=== PATIENT | male | born 1970 | race Caucasian/White ===

== ENCOUNTER → 2019-05-20 | Outpatient (CLI) | payer BC ==
--- NOTE | 2019-05-20 23:56 | CONS ---
CONSULTATION DATE OF SERVICE: 05/20/2019 48-year-old gentleman who has been evaluated in the sleep center for possible obstructive sleep apnea-hypopnea syndrome. HISTORY OF PRESENT ILLNESS/SLEEP WAKE EVALUATION: SLEEP SCHEDULE: Patient's usual sleep schedule on working days from 10:30 am until 5:15 am and on weekends from around 11:30 p.m. to 7 a.m. FALLING ASLEEP: Usually no problems with falling asleep, although he has TV in bedroom. DURING SLEEP: He sleeps on the back with his with snoring and witnessed episodes of stopped breathing during the sleep. He may wake up from sleep once with nocturia. DURING THE DAY/SLEEP WAKE EVALUATION: In the morning, he wakes up tired and usually does not take naps. [place] Sleepiness Scale is 7. No history of hypnagogic hallucinations, sleep paralysis or cataplexy. MEDICATIONS: None. PAST SURGICAL HISTORY: Adenoidectomy and tonsillectomy in childhood. SOCIAL HISTORY: Negative for smoking. Alcohol consumption occasional. FAMILY HISTORY: Heart problems, diabetes, sleep apnea, snoring. REVIEW OF SYSTEMS: Sometimes awakenings from sleep, snoring, witnessed episodes of stopped breathing. PHYSICAL EXAM: gentleman without distress, BP 137/86, HR 74, RR 16, height 6 feet 2-1/2 inches, weight 221 pounds. Body mass index 28.0, temperature 98.1, oxygen saturation at room air 98%. HEENT: Oropharynx low position of soft palate. Mallampati 3. Wide neck 16 inches in circumference. Retrognathia 1-2 mm. Neck Supple, no JVD. Thyroid is not palpable. LUNGS Clear to percussion and to auscultation. Good air exchange. No wheezing or rhonchi. HEART S1, S2 regular. No murmurs, gallops, or rubs. ABDOMEN: Soft and nontender. Bowel sounds are present. No organomegaly appreciated. EXTREMITIES No clubbing or cyanosis. KETTLE HAND Awake, alert, and oriented X3. Cranial nerves 2 to 7 intact. There is no fasciculation or atrophy. noted. No focal deficits observed. IMPRESSION: 1. Snoring, witnessed episodes of stopped breathing during the sleep. Low position of soft palate, wide neck, obstructive sleep apnea-hypopnea syndrome. 2. Status post tonsillectomy and adenoidectomy in childhood. PLAN: 1. Home sleep apnea test for evaluation of patient breathing during the sleep. 2. CPAP/BiPAP titration if sleep study confirms obstructive sleep apnea-hypopnea syndrome. 3. Preferable position during sleep on the side. 4. No driving if patient feels any sleepiness. 5. I will see patient for follow up visit to explain results of testing and following plan. Thank you very much for referring this patient for consultation. Sincerely, Hernesto Liao MD, PhD, FAASM Diplomat of [place] [employer] [place] [employer] Drivematic Machine Operator of [facility] MMODL / IJN: [id number] /
== END | disposition home or self-care (01) ==
LOC: SLEEP 16:31
PROVIDERS: ATTEND Internal Medicine
DX: G47.33 Obstructive sleep apnea (adult) (pediatric) (principal); Z90.89 Acquired absence of other organs
CPT/HCPCS: 99211

== ENCOUNTER → 2019-09-09 | Outpatient (CLI) | payer BC ==
--- NOTE | 2019-09-09 18:17 | PN ---
PROGRESS NOTE DATE OF SERVICE: 09/09/2019 This patient is a 49-year-old gentleman who has been followed in Sleep Center and is here for discussion of results of his sleep studies and the following plan. The patient had 2 home sleep apnea tests. The first test showed apnea-hypopnea index 5.3. Second test showed apnea-hypopnea index 8.7 with oxygen desaturation to 85%. The patient had awakenings from sleep up to 2 times with nocturia. Sometimes he feels tiredness and sleepiness during the day. Today his [place] Sleepiness Scale has increased to 11. MEDICATIONS: None. PHYSICAL EXAMINATION: GENERAL: A pleasant patient in no distress. VITAL SIGNS: BP 121/78, HR 56, RR 16, weight 222. Body mass index 28.5. Oxygen saturation at room air 99%. HEENT: PERRARI, EOMI. Evaluation of oropharynx showed tongue protrudes midline. Low position of soft palate. Mallampati III to IV. NECK: Supple. No JVD. Thyroid is not palpable. LUNGS: Clear to percussion and to auscultation. Good air exchange. No wheezing or rhonchi. HEART: S1, S2 regular. No murmurs, gallops or rubs. ABDOMEN: Soft and nontender. Bowel sounds are present. No organomegaly. EXTREMITIES: No clubbing or cyanosis. RESEARCHER: Awake, alert, and oriented X3. Cranial nerves 2 to 7 intact. There is no fasciculation or atrophy. noted. No focal deficits observed. IMPRESSION: 1. Obstructive sleep apnea-hypopnea syndrome. The patient has awakenings from sleep and episodes of sleepiness during the day. 2. Status post tonsillectomy. 3. Status post adenoidectomy. 4. Snoring. PLAN: 1. Patient will be started on treatment with Auto PAP and will use equipment every night for the whole night. 2. Precautions related to driving. No driving if feeling any sleepiness. 3. Watching weight. 4. Follow-up visit in 30 days after patient starts on treatment with CPAP to evaluate clinical response on treatment, compliance with treatment, and to make any necessary adjustments related to mask fitting, pressure and humidification. Thank you very much for allowing me to participate in the management of your patient. Sincerely, Hernesto Liao MD, PhD, FAASM Diplomat of [place] [employer] Specialties [place] [employer] Medicine Celluloid Trimmer of [facility] [place] MMSERVANDO / NANCY: [id number] /
== END | disposition home or self-care (01) ==
LOC: SLEEP 15:55
PROVIDERS: ATTEND Internal Medicine
DX: G47.33 Obstructive sleep apnea (adult) (pediatric) (principal); Z98.890 Other specified postprocedural states

== ENCOUNTER → 2019-11-25 | Outpatient (CLI) | payer BC ==
--- NOTE | 2019-11-25 19:04 | PN ---
PROGRESS NOTE DATE OF SERVICE: 11/25/2019 This patient is a 49-year-old gentleman who has been followed in Sleep Center for treatment of obstructive sleep apnea-hypopnea syndrome. Today is his first visit after he was started on treatment with CPAP. He is able to use CPAP equipment every night without significant problems related to his nasal pillow mask. Sometimes he feels that there is a mild leak from using the CPAP equipment. [place] Sleepiness Scale today is zero. No snoring with the machine. I checked his CPAP unit. Range of the pressure is 5-15, average pressure 8.5. Usage is 29/30 nights for more than 4 hours with average usage 6.5 hours, which is great compliance. Leak 26 L/minute. Apnea-hypopnea index 0.6, which is perfect. MEDICATIONS: None. PHYSICAL EXAMINATION: GENERAL: A pleasant patient in no distress. VITAL SIGNS: BP 127/82, HR 58, RR 16, weight 221, temperature 97.1, oxygen saturation at room air 99%. HEENT: PERRLA, EOMI. Evaluation of oropharynx showed tongue protrudes midline. Low position of soft palate. Mallampati III to IV. NECK: Supple. No JVD. Thyroid is not palpable. LUNGS: Clear to percussion and to auscultation. Good air exchange. No wheezing or rhonchi. HEART: S1, S2 regular. No murmurs, gallops or rubs. ABDOMEN: Soft and nontender. Bowel sounds are present. No organomegaly. EXTREMITIES: No clubbing or cyanosis. STEEL ENGRAVER: Awake, alert, and oriented X3. Cranial nerves 2 to 7 intact. There is no fasciculation or atrophy. noted. No focal deficits observed. IMPRESSION: 1. Obstructive sleep apnea-hypopnea syndrome, under full control with CPAP. Patient demonstrated great compliance with treatment, benefitting from treatment. No sleepiness during the day while on CPAP. 2. Status post tonsillectomy. 3. Status post adenoidectomy. 4. History of snoring; no snoring while using CPAP. PLAN: 1. Patient will continue to use CPAP equipment every night for the whole night. 2. Sleep hygiene with regular time in bed for 7-1/2 to 8 hours. 3. Precautions related to driving. No driving if feeling any sleepiness. 4. I will maintain all necessary prescriptions for CPAP supplies, including Flores FX nasal pillow mask, tube, filters. Patient should try to use chinstrap. 5. Follow-up visit in one year, or earlier if patient has any problems. Thank you very much for allowing me to participate in the management of your patient. Sincerely, Hernesto Liao MD, PhD, FAASM Diplomat of [place] [employer]ties [place] [employer] Medicine Clinical Research Nurse Coordinator of [facility] [place] MMODL / IJN: [id number] /
== END | disposition home or self-care (01) ==
LOC: SLEEP 16:26
PROVIDERS: ATTEND Internal Medicine
DX: G47.33 Obstructive sleep apnea (adult) (pediatric) (principal); Z90.89 Acquired absence of other organs

== ENCOUNTER → 2020-04-12 | Day surgery (SDC) | payer BC ==
[2020-04-10 11:27] VITALS: BMI 25.6
[~2020-04-12] MED LIST: LACTATED RINGERS 1,000 ML IV SCH; LIDOCAINE 1% INJ 10MG/ML (20 ML MDV) ONE; PROPOFOL 10 MG/ML 20 ML VIAL IV ONE
--- NOTE | 2020-04-12 08:06 | P.GSHP ---
History of Present Illness H&P Date: 04/12/20 CHIEF COMPLAINT: Colon screen HISTORY OF PRESENT ILLNESS: The patient is a 49-year-old male who presents for colon screen. Lower endoscopy was offered for further evaluation and management. PAST MEDICAL HISTORY: Please see list. PAST SURGICAL HISTORY: Please see list. MEDICATIONS: Please see list. ALLERGIES: Please see list. SOCIAL HISTORY: No illicit drug use FAMILY HISTORY: No reports of Crohn disease or ulcerative colitis. REVIEW OF ORGAN SYSTEMS: CONSTITUTIONAL: No reports of fevers or chills. PHYSICAL EXAM: VITAL SIGNS: Stable GENERAL: Well-developed pleasant in no acute distress. HEENT: No scleral icterus. Extraocular movements grossly intact. Moist buccal mucosa. NECK: Supple without lymphadenopathy. CHEST: Unlabored respirations. Equal bilateral excursions. CARDIOVASCULAR: Regular rate and rhythm. Distal 2+ pulses. ABDOMEN: Soft, nontender, nondistended. MUSCULOSKELETAL: No clubbing, cyanosis, or edema. ASSESSMENT: 1. Colon screen. PLAN: 1. Recommend proceeding with a lower endoscopy Past Medical History Past Medical History: Cancer, Sleep Apnea/CPAP/BIPAP Additional Past Medical History / Comment(s): uses cpap,skin CA removed with bx History of Any Multi-Drug Resistant Organisms: None Reported Additional Past Surgical History / Comment(s): skin bx Past Anesthesia/Blood Transfusion Reactions: No Reported Reaction Smoking Status: Never smoker - Past Family History Father Family Medical History: CVA/TIA Medications and Allergies Home Medications Medication Instructions Recorded Confirmed Type No Known Home Medications 04/10/20 04/10/20 History Allergies Allergy/AdvReac Type Severity Reaction Status Date / Time Penicillins Allergy Unknown Verified 04/10/20 11:22 Childhood
[2020-04-12 11:06] VITALS: RESP 16; TEMP 98.3
--- NOTE | 2020-04-12 12:24 | P.PCN ---
Date of Procedure: 04/12/20 Description of Procedure: PREOPERATIVE DIAGNOSIS: Colonoscopy screening. POSTOPERATIVE DIAGNOSIS: Colonoscopy screening. Augustine Diverticulosis OPERATION: Colonoscopy to the ileocecal valve and appendiceal orifice. SURGEON: Laurne Mckeon MD. ANESTHESIA: MAC. INDICATIONS: The patient is a 49-year-old male who presents for colonoscopy screening. Benefits and risks were described and informed consent was obtained. DESCRIPTION OF PROCEDURE: The patient had undergone Suprep. He had been brought into the operating room and laid in the left lateral decubitus position. After adequate intravenous sedation, the rectum was examined with 2% lidocaine jelly. Small external hemorrhoids were encountered. The rectal tone was within normal limits. No lesions were palpated in the rectal vault. An Olympus colonoscope was advanced until the ileocecal valve and appendiceal orifice were clearly viewed. The prep was excellent with clear visualization of the mucosal folds. The scope was removed with visualization of each mucosal fold. Augustine diverticulosis was encountered. No colonic polyps were found. No evidence of focal colitis was found. Retroflexion of the scope demonstrated grade 1 internal hemorrhoids without active bleeding or inflammation. The colon was desufflated. The patient had tolerated the procedure well. Withdrawal time was over 6 minutes. FINDINGS: Aronchick preparation quality scale1 (1-5) Internal hemorrhoids, grade 1 No external prolapsed hemorrhoids. No arteriovenous malformations. No adenomatous polyps. No focal colitis. Pandiverticulosis RECOMMENDATIONS: Lower endoscopy in 10 years, 2030 or Cologaurd Plan - Discharge Summary Discharge Rx Participant: No New Discharge Prescriptions: No Action No Known Home Medications Discharge Medication List No Known Home Medications 04/10/20 [History] Follow up Appointment(s)/Referral(s): Lauren Mckeon MD [STAFF PHYSICIAN] - As Needed Patient Instructions/Handouts: Diverticulosis Diet (GEN), Diverticulosis (GEN) Activity/Diet/Wound Care/Special Instructions: Repeat colonoscopy in 10 years, 2030 or Cologaurd Discharge Disposition: HOME SELF-CARE
[2020-04-12 12:44] VITALS: BP 132/78; PULSE 62
== END | disposition home or self-care (01) ==
LOC: ORWHC2ENDO 10:45
PROVIDERS: ATTEND Surgery Plastic and Reconstructive Surgery
DX: Z12.11 Encounter for screening for malignant neoplasm of colon (principal); K57.90 Diverticulosis of intestine, part unspecified, without perforation or abscess without bleeding; K64.0 First degree hemorrhoids; Z85.828 Personal history of other malignant neoplasm of skin; G47.30 Sleep apnea, unspecified; Z99.89 Dependence on other enabling machines and devices; Z82.3 Family history of stroke; Z88.0 Allergy status to penicillin
CPT/HCPCS: J2001; J2704; G0121

== ENCOUNTER → 2021-01-31 | Outpatient (CLI) | payer BC ==
--- NOTE | 2021-01-31 23:23 | SFUN ---
SLEEP CENTER FOLLOW UP NOTE DATE OF SERVICE: 01/31/2021 50-year-old gentleman has been followed in Sleep Center for treatment of obstructive sleep apnea-hypopnea syndrome. Last time I saw patient about 15 months ago. The patient continues to use his CPAP equipment every night for the whole night without significant problems related to mask fitting, pressure humidification is using a nasal pillow mask. Sometimes he opens his mouth. He try to do a chinstrap before but prefer not to use it. [place] Sleepiness Scale today is 2. I checked his CPAP unit. It is in automatic regimen 5-15 cm of water. Average pressure 7.8 cm of water. Usage is 100% of the night for more than 4 hours, average 6.7 hours per night. Leak is slightly high 34 L/minute. Apnea-hypopnea index at the same time perfect only 1.1. MEDICATIONS: Flomax. PHYSICAL EXAM: Patient in no distress. VITAL SIGNS: BP 131/85, HR 65, RR 18, height 63, weight 215.0, temperature 98.7, oxygen saturation at room air 100%. HEENT: PERRLA, EOMI. Oropharynx low position of soft palate, Mallampati 3-4. NECK: Supple, no JVD. Thyroid is not palpable. LUNGS: Clear to percussion and to auscultation. Good air exchange. No wheezing or rhonchi. HEART: S1, S2 regular. No murmurs, gallops, or rubs. ABDOMEN: Soft and nontender. Bowel sounds are present. No organomegaly appreciated. EXTREMITIES: No clubbing or cyanosis. CHEMICAL PLANT TECHNICAL DIRECTOR: Awake, alert, and oriented X3. Cranial nerves 2 to 7 intact. There is no fasciculation or atrophy. noted. No focal deficits observed. IMPRESSION: 1. Obstructive sleep apnea-hypopnea syndrome. Patient demonstrated 100% compliance with treatment, benefitting from treatment. 2. Some leak from the mask. Possibly patient opens his mouth does not influence on any breathing. During sleep, breathing is normal. 3. Status post tonsillectomy. 4. Status post adenoidectomy. 5. No snoring on CPAP. PLAN: 1. Patient will continue to use PAP equipment every night for the whole night. 2. Sleep hygiene with regular time in bed for at least 7-1/2 to 8 hours. 3. Precautions related to driving. No driving if feeling sleepiness. 4. I will maintain all necessary prescription for PAP supplies including mask, tube, filters. 5. Watching weight. 6. Follow-up visit in 6 months or earlier if patient has any problems. Thank you very much for allowing me to participate in management of your patient. Sincerely, Hernesto Liao MD, PhD, FAASM Diplomat of [place] Board of Medical Specialties [place] Board of Internal Medicine Office Technology Instructor of [facility] [place] MMODL / IRISN: [id number] /
== END ==
LOC: SLEEP 14:43
PROVIDERS: ATTEND Internal Medicine
DX: G47.33 Obstructive sleep apnea (adult) (pediatric) (principal); Z99.89 Dependence on other enabling machines and devices; Z98.890 Other specified postprocedural states

== ENCOUNTER → 2021-08-09 | Outpatient (CLI) | payer BC ==
--- NOTE | 2021-08-09 20:56 | SFUN ---
SLEEP CENTER FOLLOW UP NOTE DATE OF SERVICE: 08/09/2021 This 50-year-old gentleman has been followed in Sleep Center for treatment of obstructive sleep apnea-hypopnea syndrome. The patient continues to use his CPAP equipment every night for the whole night. No significant problems with the CPAP equipment. [place] Sleepiness Scale today is 0, which is perfect. I checked his CPAP unit. Range of the pressure is 5 to 15, average 8.3 cm of water. Usage is 30/30 nights and 26/30 nights for more than 4 hours, average 6.4 hours per night. Leak is 31 L/minute. Apnea-hypopnea index is 1.0, which is totally perfect. MEDICATIONS: Tamsulosin 0.4 mg once a day. PHYSICAL EXAMINATION: GENERAL: Pleasant patient in no distress. VITAL SIGNS: BP 137/86, HR 80, RR 15, height 6 feet 2 inches, weight 218.4, body mass index 28.1, temperature 97.4, oxygen saturation at room air 97%. HEENT: PERRLA, EOMI, evaluation of oropharynx showed tongue protrudes midline. Low position of soft palate; Mallampati III to IV. NECK: Supple, no JVD. Thyroid is not palpable. LUNGS: Clear to percussion and to auscultation. Good air exchange. No wheezing or rhonchi. HEART: S1, S2 regular. No murmurs, gallops, or rubs. ABDOMEN: Soft and nontender. Bowel sounds are present. No organomegaly appreciated. EXTREMITIES: No clubbing or cyanosis. EDITORIAL CLERK: Awake, alert, and oriented X3. Cranial nerves 2 to 7 intact. There is no fasciculation or atrophy. noted. No focal deficits observed. IMPRESSION: 1. Obstructive sleep apnea-hypopnea syndrome. The patient demonstrated great compliance with treatment, benefitting from treatment. 2. Status post tonsillectomy. 3. Status post adenoidectomy. 4. Overweight. The patient's weight increased by 3 pounds since the previous visit. PLAN: 1. Patient will continue to use PAP equipment every night for the whole night. 2. Sleep hygiene with regular time in bed for at least 7-1/2 to 8 hours. 3. Precautions related to driving. No driving if feeling sleepiness. 4. I will maintain all necessary prescription for PAP supplies including mask, tube, filters. 5. Watching weight. 6. Follow-up visit in 6 months or earlier if patient has any problems. Thank you very much for allowing me to participate in the management of your patient. Sincerely, Hernesto Liao MD, PhD, FAASM Diplomat of [place] [employer] Specialties Sleep Medicine Board of [place] Board of Internal Medicine Allied Health Professional of [facility] [place] MMSERVANDO / NANCY: [id number] /
== END | disposition home or self-care (01) ==
LOC: SLEEP 14:32
PROVIDERS: ATTEND Internal Medicine
DX: G47.33 Obstructive sleep apnea (adult) (pediatric) (principal); Z90.89 Acquired absence of other organs; Z90.09 Acquired absence of other part of head and neck; E66.3 Overweight

== ENCOUNTER → 2022-02-06 | Outpatient (CLI) | payer BC ==
--- NOTE | 2022-02-06 20:18 | SFUN ---
SLEEP CENTER FOLLOW UP NOTE DATE OF SERVICE: 02/06/2022 51-year-old gentleman has been followed in Sleep Center for treatment of obstructive sleep apnea-hypopnea syndrome. Patient continued to use CPAP equipment every night for the whole night. No snoring on CPAP. [place] Sleepiness Scale today is 3 which is totally normal. I checked his CPAP unit, pressure is 5-15 cm of water. Average 9.4 cm of water. Usage is 29/30 nights for more than 4 hours. Leak is 25 L/minute, which is borderline. Apnea-hypopnea index is 1.1 which is totally normal. MEDICATIONS: Tamsulosin 0.8 mg once a day. PHYSICAL EXAMINATION: GENERAL: Patient in no distress. BP 138/77, HR 67, RR 16, weight 223.8 pounds, temperature 97.4, oxygen saturation on room air 100%. Oropharynx: Low position of soft palate, Mallampati 3-4. NECK: Supple, no JVD. Thyroid is not palpable. LUNGS: Clear to percussion and to auscultation. Good air exchange. No wheezing or rhonchi. HEART: S1, S2 regular. No murmurs, gallops, or rubs. ABDOMEN: Soft and nontender. Bowel sounds are present. No organomegaly appreciated. EXTREMITIES: No clubbing or cyanosis. ELECTRICAL SIGN WIRER: Awake, alert, and oriented X3. Cranial nerves 2 to 7 intact. There is no fasciculation or atrophy. noted. No focal deficits observed. IMPRESSION: 1. Obstructive sleep apnea-hypopnea syndrome. Patient demonstrated great compliance with treatment benefitting from treatment. 2. Status post tonsillectomy. 3. Status post adenoidectomy. 4. Slight overweight. The patient increased his weight on 5 pounds compared to the previous visit. PLAN: 1. Patient will continue to use PAP equipment every night for the whole night. 2. Sleep hygiene with regular time in bed for at least 7-1/2 to 8 hours. 3. Precautions related to driving. No driving if feeling sleepiness. 4. I will maintain all necessary prescription for PAP supplies including mask, tube, filters. 5. Watching weight. 6. Follow-up visit in 6 months or earlier if patient has any problems. Thank you very much for allowing me to participate in management of your patient. Sincerely, Hernesto Liao MD, PhD, FAASM Diplomat of [place] [employer] Specialties Sleep Medicine Board of [place] [employer] of Internal Medicine Gravure Press Operator of [facility] [place] MMTOYAL / IRISN: [id number] /
== END | disposition home or self-care (01) ==
LOC: SLEEP 13:18
PROVIDERS: ATTEND Internal Medicine
DX: G47.33 Obstructive sleep apnea (adult) (pediatric) (principal); Z90.89 Acquired absence of other organs

== ENCOUNTER → 2022-08-22 | Outpatient (CLI) | payer BC ==
--- NOTE | 2022-08-22 13:39 | P.PN ---
Subjective DATE: 08/22/2022 FOLLOW UP VISIT. Patient with obstructive sleep apnea hypopnea syndrome return to sleep center for follow-up visit. Information from previous visit have been reviewed. Patient is using PAP equipment every night for the whole night, getting PAP supplies in time. The patient does not have significant problems with the mask, PAP unit and humidification. [place] sleepiness scale is 0, which is perfect. I checked PAP unit. PAP unit pressure 5-15 cm H2O. Usage is 100 % for more then 4 hours, average 7.1 hours per night. Leak is 25 l/m, which is in acceptable range. Apnea Hypopnea Index is 0.9, which is great. MEDICATIONS:1. Tamsulosin 0.4 mg once a day During physical exam: GENERAL: A pleasant patient without any distress. VITAL SIGNS: BP 143/82, HR 78, RR 16, weight 276, height 6 foot 2-1/2 inches, body mass index 30.3, temperature 98.0, oxygen saturation at room air 97 % . HEENT: PERRLA, EOMI.low position of soft palate, Mallapati 3-4 . NECK: Supple. No JVD. LUNGS: Clear to percussion and to auscultation. Good air exchange. No wheezing or rhonchi. HEART: S1, S2 regular. ABDOMEN: Soft and nontender.[] EXTREMITIES: No clubbing or cyanosis. ALGORITHM DESIGN ENGINEER: Awake, alert, and oriented x3. No focal deficit. Impressions: 1. Obstructive sleep apnea-hypopnea syndrome. Patient demonstrated great compl iance with treatment, benefiting from treatment. 2. Mild obesity. Patient increased his weight on 13 pounds comparing to the previous visit. 3. Status post tonsillectomy. 4. Status post adenoidectomy. Plan: 1. Continue using PAP equipment every night for the whole night. 2. To change air filter at least 1-2 times per month. 3. PAP unit should stay lower then position of the head. 4. Advised patient to remove all remaining water from humidifier canister daily and make it dry after each usage. Refill canister with fresh distilled water before each usage. 5. Sleep hygiene with regular time in bed for at least 8 hours. 6. Precautions related to driving. No driving if feel any sleepiness. 7. I will maintain prescription for PAP supplies including mask, tube, filters. 8. Follow up visit in 6 months or earlier if patient has any problems. 9. Watching and losing weight. Thank you very much for allowing me to participate in the management of your patient. Hernesto Liao MD, PhD, FAASM. Diplomat of [place] [employer] Medicine, Sleep Medicine Board by [place] [employer] of Internal Medicine Chemotherapist of [facility] [place]
== END ==
LOC: SLEEP 13:10
PROVIDERS: ATTEND Internal Medicine
DX: G47.33 Obstructive sleep apnea (adult) (pediatric) (principal); E66.9 Obesity, unspecified; Z90.89 Acquired absence of other organs; Z88.0 Allergy status to penicillin; Z90.09 Acquired absence of other part of head and neck
CPT/HCPCS: 99212

== ENCOUNTER → 2023-02-27 | Outpatient (CLI) | payer BC ==
--- NOTE | 2023-02-27 13:33 | P.PN ---
Subjective DATE: 02/27/2023 FOLLOW UP VISIT. Patient with obstructive sleep apnea hypopnea syndrome return to sleep center for follow-up visit. Information from previous visit have been reviewed. Patient is using PAP equipment every night for the whole night, getting PAP supplies in time. The patient does not have significant problems with the mask, PAP unit and humidification. [place] sleepiness scale is 2, which is normal. I checked information from PAP unit. PAP unit pressure 5-15, average 10.4 cm H2O. Usage is 100 % for more then 4 hours, average 6.4 hours per night. Leak is 26 l/m, which is in acceptable range. Apnea Hypopnea Index is 1.1, which is normal. MEDICATIONS:1. Tamsulosin 0.4 mg once a day During physical exam: GENERAL: A pleasant patient without any distress. VITAL SIGNS: BP 132/89, HR 68, RR 12 , weight 233.6, temperature 98.2, oxygen saturation at room air 100 % . HEENT: PERRLA, EOMI.low position of soft palate, Mallapati 34 . NECK: Supple. No JVD. LUNGS: Clear to percussion and to auscultation. Good air exchange. No wheezing or rhonchi. HEART: S1, S2 regular. ABDOMEN: Soft and nontender.[] EXTREMITIES: No clubbing or cyanosis. MANAGER IT SECURITY: Awake, alert, and oriented x3. No focal deficit. Impressions: 1. Obstructive sleep apnea-hypopnea syndrome. Patient demonstrated great compliance with treatment, benefiting from treatment. 2. Status post tonsillectomy. 3. Status post adenoidectomy. 4. BPH. Plan: 1. Continue using PAP equipment every night for the whole night. 2. To change air filter at least 1-2 times per month. 3. PAP unit should stay lower then position of the head. 4. Advised patient to remove all remaining water from humidifier canister daily and make it dry after each usage. Refill canister with fresh distilled water before each usage. 5. Sleep hygiene with regular time in bed for at least 8 hours. 6. Precautions related to driving. No driving if feel any sleepiness. 7. I will maintain prescription for PAP supplies including mask, tube, filters. 8. Watching weight. 9. Follow up visit in 6 months or earlier if patient has any problems. Thank you very much for allowing me to participate in the management of your patient. Hernesto Liao MD, PhD, FAASM. Diplomat of [employer], Sleep Medicine Board by [employer] Automobile Racer of [facility] [place]
== END ==
LOC: SLEEP 13:04
PROVIDERS: ATTEND Internal Medicine
DX: G47.33 Obstructive sleep apnea (adult) (pediatric) (principal); Z79.4 Long term (current) use of insulin; Z98.890 Other specified postprocedural states; N40.0 Benign prostatic hyperplasia without lower urinary tract symptoms; Z99.89 Dependence on other enabling machines and devices
CPT/HCPCS: 99212

== ENCOUNTER → 2023-09-11 | Outpatient (CLI) | payer BC ==
--- NOTE | 2023-09-11 13:32 | P.PN ---
Subjective DATE: 09/11/2023 FOLLOW UP VISIT. Patient with obstructive sleep apnea hypopnea syndrome return to sleep center for follow-up visit. Information from previous visit have been reviewed. Patient is using PAP equipment every night for the whole night, getting PAP supplies in time. The patient does not have significant problems with the mask, PAP unit and humidification. [place] sleepiness scale is 0, which is perfect. I checked information from PAP unit and discussed it with patient in details. PAP unit pressure 5-15, average 10.4 cm H2O. Usage is 100 % for more then 4 hours, average 6.7 hours per night. Leak is 24 l/m, which is in acceptable range. Apnea Hypopnea Index is 1.0, which is normal. MEDICATIONS:1. Tamsulosin 0.4 mg once a day During physical exam: GENERAL: A pleasant patient without any distress. VITAL SIGNS: BP 151/86, HR 84, RR 16, weight 240.6, temperature 97.9, oxygen saturation at room air 99 % . HEENT: PERRLA, EOMI.low position of soft palate, Mallapati 3-4 . NECK: Supple. No JVD. LUNGS: Clear to percussion and to auscultation. Good air exchange. No wheezing or rhonchi. HEART: S1, S2 regular. ABDOMEN: Soft and nontender.[] EXTREMITIES: No clubbing or cyanosis. LAMP CLEANER: Awake, alert, and oriented x3. No focal deficit. Impressions: 1. Obstructive sleep apnea-hypopnea syndrome. Patient demonstrated great compliance with treatment, benefiting from treatment. 2. Hypertension in the office today. 3. Status post tonsillectomy. 4. BPH. 5. Status post adenoidectomy. Plan: 1. Continue using PAP equipment every night for the whole night. 2. To change air filter at least 1-2 times per month. 3. PAP unit should stay lower then position of the head. 4. Advised patient to remove all remaining water from humidifier canister daily and make it dry after each usage. Refill canister with fresh distilled water before each usage. 5. Sleep hygiene with regular time in bed for at least 8 hours. 6. Precautions related to driving. No driving if feel any sleepiness. 7. I will maintain prescription for PAP supplies including mask, tube, filters. 8. Follow up visit in 6 months or earlier if patient has any problems. 9. Watching weight. 10. Monitoring blood pressure. 11. Low sodium diet. Thank you very much for allowing me to participate in the management of your patient. Hernesto Liao MD, PhD, FAASM. Diplomat of [place] [employer], Sleep Medicine Board by [employer] Cable Splicer Assistant of [facility] [place]
== END ==
LOC: SLEEP 13:09
PROVIDERS: ATTEND Internal Medicine
DX: G47.33 Obstructive sleep apnea (adult) (pediatric) (principal); I10 Essential (primary) hypertension; N40.0 Benign prostatic hyperplasia without lower urinary tract symptoms; Z90.89 Acquired absence of other organs; Z88.0 Allergy status to penicillin
CPT/HCPCS: 99212

== ENCOUNTER → 2024-05-31 | Outpatient (CLI) | payer BC | LOC: 3 N SLEEP 13:20 | PROVIDERS: ATTEND Internal Medicine | CPT/HCPCS: 99212 ==

== ENCOUNTER → 2025-02-16 | Outpatient (CLI) | payer BC ==
[2025-02-16 15:43] VITALS: BP 127/84; PULSE 74; RESP 16; TEMP 97.6
--- NOTE | 2025-02-16 17:27 | P.PROGSL ---
Subjective DATE: 02/16/2025 FOLLOW UP VISIT. Patient with obstructive sleep apnea hypopnea syndrome return to sleep center for follow-up visit. Information from previous visit have been reviewed. Patient is using PAP equipment every night for the whole night, getting PAP supplies in time. The patient does not have significant problems with the mask, PAP unit and humidification. [place] sleepiness scale is 2, which is normal. I checked information from PAP unit. PAP unit pressure 5-15, average 10 cm H2O. Usage is 100% for more then 4 hours, average 6.9 hours per night. Leak is 29 l/m, which is in acceptable range. Apnea Hypopnea Index is 1.3, which is normal. MEDICATIONS have been reviewed, please see below. During physical exam: GENERAL: A pleasant patient without any distress. VITAL SIGNS: Please see below, weight is 226 lbs. HEENT: PERRLA, EOMI.low position of soft palate, Mallapati 3 . NECK: Supple. No JVD. LUNGS: Clear to percussion and to auscultation. Good air exchange. No wheezing or rhonchi. HEART: S1, S2 regular. ABDOMEN: Soft and nontender.[] EXTREMITIES: No clubbing or cyanosis. MILK AND CREAM GRADER: Awake, alert, and oriented x3. No focal deficit. Impressions: 1. Obstructive sleep apnea-hypopnea syndrome. Patient demonstrated great compliance with treatment, benefiting from treatment. 2. BPH. Plan: 1. Continue using PAP equipment every night for the whole night. 2. Sleep hygiene with regular time in bed for at least 7.5-8 hours 3. PAP unit should stay lower then position of the head. 4. Advised patient to remove all remaining water from humidifier canister daily and make it dry after each usage. Refill canister with fresh distilled water before each usage. 5. Watching weight. 6. Precautions related to driving. No driving if feel any sleepiness. 7. I will maintain prescription for PAP supplies including mask, tube, filters. 8. Follow up visit in 8 months or earlier if patient has any problems. Thank you very much for allowing me to participate in the management of your patient. Hernesto Liao MD, PhD, FAASM. Diplomat of [place] [employer], Sleep Medicine Board by [employer] [employer] Scaler of [facility] Objective - Vital Signs Vital Signs: Vital Signs Temp 97.6 F 02/16/25 15:42 Pulse 74 02/16/25 15:42 Resp 16 02/16/25 15:42 BP 127/84 02/16/25 15:42 Pulse Ox 97 02/16/25 15:42 FiO2 Intake & Output 02/15/25 02/16/25 02/16/25 18:59 06:59 18:59 Weight 102.512 kg Home Medications: Home Medications Medication Instructions Recorded Confirmed Type Tamsulosin [Flomax] 0.4 mg PO DAILY 02/16/25 02/16/25 History
== END ==
LOC: 3 N SLEEP 15:32
PROVIDERS: ATTEND Internal Medicine
DX: G47.33 Obstructive sleep apnea (adult) (pediatric) (principal); N40.0 Benign prostatic hyperplasia without lower urinary tract symptoms; Z88.0 Allergy status to penicillin
CPT/HCPCS: 99212